=== PATIENT | male | born 1995 | race Two or more races ===

== ENCOUNTER → 2025-03-31 | Emergency (ER) | payer OTHER ==
[~2025-03-31] VITALS: Ht 170.2 cm; Wt 83.9 kg
== END | disposition left against medical advice (07) ==
LOC: ER 23:43
DX: Z53.21 Procedure and treatment not carried out due to patient leaving prior to being seen by health care provider (principal)

== ENCOUNTER 2025-04-01 13:46 | Emergency (ER) | payer OTHER ==
[~2025-04-01] VITALS: Ht 172.7 cm; Wt 68.0 kg
[2025-04-01 18:31] LABS: BASO % 0.4 % (0.1-1.2); EOS # 0.08 (0.04-0.54); EOS % 0.8 % (0.7-7.0); HEMATOCRIT 41.9 % (40.1-51.0); HEMOGLOBIN 14.5 g/dL (13.7-17.5); LYMPH # 1.96 (1.18-3.74); LYMPH % 19.9 % (19.3-53.1); MEAN CORPUSCULAR HEMOGLOBIN 32.1 pg (25.6-32.2); NEUT # 6.46 (1.56-6.13); NEUT % 65.5 % (34.0-71.1); PLATELET COUNT 281 K/uL (163-369); RED BLOOD COUNT 4.52 M/uL (4.63-6.08); RED CELL DISTRIBUTION WIDTH 13.5 % (11.6-14.4)
[2025-04-01 18:41] LABS: MONO % 13.2 % (4.7-12.5)
[2025-04-01 19:19] LABS: ALBUMIN 3.9 gm/dL (3.4-5.0); BILIRUBIN TOTAL 0.3 mg/dL (0.3-1.2); CALCIUM 8.9 mg/dL (8.5-10.1); CREATININE SERUM 0.98 mg/dL (0.70-1.30); GFR 91.75; GLOBULINA 3.6 G/DL (2.4-3.5); POTASSIUM 3.59 mEq/L (3.5-5.1); TOTAL PROTEIN 7.5 gm/dL (6.4-8.2)
[2025-04-01 19:34] LABS: URINE APPEARANCE Cloudy; URINE BILIRRUBIN Negative (NEGATIVE); URINE BLOOD Negative; URINE COLOR Dark Yellow; URINE GLUCOSE Negative (NEGATIVE); URINE KETONE Trace (NEGATIVE); URINE LEUKOCYTE Trace; URINE NITRATE Negative; URINE PROTEIN Trace (NEGATIVE)
[2025-04-01 19:36] LABS: URINE BACTERIA 57.5 uL (0.0-1933); URINE RBC 23.1 uL (0.0-20.8); URINE WBC 26.7 uL (0.0-23.2)
[2025-04-01 19:53] LABS: URINE CAST 0.58 uL (0.0-1.40)
[2025-04-01 20:52] LABS: COCAINE POSITIVE (NEGATIVE); METHADONE NEGATIVE (NEGATIVE); OPIATES NEGATIVE (NEGATIVE); THC ( Cannabinoids) POSITIVE (NEGATIVE)
[2025-04-01] MEDS ORDERED: CEFTRIAXONE SODIUM 1,000 MG VIAL IM ONE (23:00)
== END 2025-04-02 00:48 | disposition designated cancer center or children's hospital (05) ==
LOC: ER 13:46
PROVIDERS: Preventive Medicine Public Health & General Preventive Medicine
DX: R45.851 Suicidal ideations (principal); F19.20 Other psychoactive substance dependence, uncomplicated

== ENCOUNTER 2025-07-31 11:46 | Emergency (ER) | payer OTHER ==
[~2025-07-31] VITALS: Ht 165.1 cm; Wt 54.4 kg
[2025-07-31] MEDS ORDERED: SEROQUEL XR150 MG (12:08)
[2025-07-31] MEDS ORDERED: TRAZODONE HCL100 MG PO (12:08)
[2025-07-31] MEDS ORDERED: CLONAZEPAM2 M1 (12:08)
[2025-07-31] MEDS ORDERED: NEURONTIN800 MG (12:08)
[2025-07-31 13:09] LABS: BASO % 0.8 % (0.1-1.2); EOS # 1.10 (0.04-0.54); EOS % 14.0 % (0.7-7.0); LYMPH # 1.46 (1.18-3.74); LYMPH % 18.6 % (19.3-53.1); MEAN PLATELET VOLUME 10.40 fl (9.4-12.4); MONO # 0.65 (0.24-0.82); MONO % 8.3 % (4.7-12.5); NEUT # 4.58 (1.56-6.13); NEUT % 58.2 % (34.0-71.1); RED CELL DISTRIBUTION WIDTH 13.5 % (11.6-14.4)
[2025-07-31 13:33] LABS: ALT/SGPT 22.0 U/L (12-78); AST/SGOT 25.0 U/L (15-37); BILIRUBIN TOTAL 0.28 mg/dL (0.3-1.2); BUN CREA RATIO 12.0 (7.0-25.0); CREATININE SERUM 0.93 mg/dL (0.70-1.30); GFR 97.46; GLOBULINA 4.4 G/DL (2.4-3.5); GLUCOSE FASTING 92.0 mg/dL (65-100); LDH 241.0 U/L (87-241); OSMOLALITY SERUM 282.0 MOSM/KG (275-295); PHOSPHOKINASE CREATININE 190.0 U/L (39-308)
[2025-07-31 13:48] LABS: URINE APPEARANCE Cloudy; URINE BILIRRUBIN Small (NEGATIVE); URINE BLOOD Negative; URINE COLOR Dark Yellow; URINE GLUCOSE Negative (NEGATIVE); URINE KETONE Trace (NEGATIVE); URINE LEUKOCYTE Trace; URINE NITRATE Negative; URINE PROTEIN Trace (NEGATIVE); URINE UROBILINOGEN 2.0 E.U./dl
[2025-07-31 13:50] LABS: URINE BACTERIA 86.3 uL (0.0-1933); URINE EPITHELIAL CELLS 2.7 uL (0.0-38.8); URINE RBC 10.2 uL (0.0-20.8); URINE WBC 6.4 uL (0.0-23.2)
[2025-07-31 13:58] LABS: URINE CAST 0.73 uL (0.0-1.40)
[2025-07-31 14:23] LABS: COCAINE POSITIVE (NEGATIVE); METHADONE NEGATIVE (NEGATIVE); OPIATES NEGATIVE (NEGATIVE); THC ( Cannabinoids) POSITIVE (NEGATIVE)
[2025-07-31 16:16] LABS: COVID-19 AG NEGATIVE (NEGATIVE)
== END 2025-07-31 18:24 | disposition designated cancer center or children's hospital (05) ==
LOC: ER 11:55
PROVIDERS: General Practice
DX: R45.851 Suicidal ideations (principal); F32.89 Other specified depressive episodes; Z20.822 Contact with and (suspected) exposure to COVID-19

== ENCOUNTER → 2025-08-30 | Emergency (ER) | payer OTHER ==
[~2025-08-30] VITALS: Ht 172.7 cm; Wt 63.5 kg
[~2025-08-30] MED LIST: CLONAZEPAM2 M1; NEURONTIN800 MG; SEROQUEL XR150 MG; TRAZODONE HCL100 MG PO
[2025-08-30 03:29] VITALS: BP 143/72; O2SAT 96
== END | disposition left against medical advice (07) ==
LOC: ER 03:10
DX: Z53.21 Procedure and treatment not carried out due to patient leaving prior to being seen by health care provider (principal)

== ENCOUNTER 2025-11-05 12:36 | Emergency (ER) | payer OTHER ==
[~2025-11-05] VITALS: Ht 172.7 cm; Wt 68.0 kg
[2025-11-05] MEDS ORDERED: NEURONTIN300 MG PO (13:28)
[2025-11-05] MEDS ORDERED: CLONAZEPAM 1 MG TABLET PO ONE (13:30)
== END 2025-11-05 15:29 | disposition home or self-care (01) ==
LOC: ER 12:36
DX: F41.8 Other specified anxiety disorders (principal)